=== PATIENT | female | born 1965 | race Caucasian/White ===

== ENCOUNTER → 2017-06-01 | Outpatient (CLI) | payer OTHER ==
[~2017-06-01] MED LIST: ALLEGRA 180MG180 MG PO; ALLEGRA180 MG PO; ARMOUR THYROID120 MG PO; CEPHALEXIN500 M1 PO; IMURAN 50MG TAB50 MG PO; MILLIPRED DP5 MG PO; PEPCID COMPLETE1 CTB PO; PREDNISONE10 MG PO; THYROID PO; TYLENOL 500MG500 MG PO; TYLENOL W/COD1 UDTAB PO; ZYRTEC 10MG PO; ZYRTEC 10MG10 MG PO
== END ==
LOC: MC.RAD 07:00
DX: Z12.31 Encounter for screening mammogram for malignant neoplasm of breast (principal)

== ENCOUNTER → 2017-07-05 | Outpatient (CLI) | payer OTHER | LOC: COL.RAD 07:19 | DX: M51.36 Other intervertebral disc degeneration, lumbar region (principal); M51.26 Other intervertebral disc displacement, lumbar region; M48.061 Spinal stenosis, lumbar region without neurogenic claudication ==

== ENCOUNTER → 2018-06-09 | Outpatient (CLI) | payer OTHER | LOC: MC.RAD 06-06 07:00 | DX: Z12.31 Encounter for screening mammogram for malignant neoplasm of breast (principal) ==

== ENCOUNTER 2018-08-15 13:40 | Day surgery (SDC) | payer OTHER ==
[2006-06-22 11:13] VITALS: BP 116/77
[2018-08-15] VITALS (7 sets, daily range): BP systolic 129–153; BP diastolic 87–104; PULSE 80–105; TEMP 97.2–97.5
[~2018-08-15] VITALS: Ht 157.5 cm; Wt 66.4 kg
[2018-08-15] MEDS ORDERED: ARMOUR THYROID90 MG PO (14:38)
[2018-08-15] MEDS ORDERED: PEPCID AC 10MG10 MG PO (14:43)
[2018-08-15] MEDS ORDERED: IMITREX 5MGNAS NS (14:44)
[2018-08-15] MEDS ORDERED: PREDNISONE20 MG PO (14:45)
[2018-08-15] MEDS ORDERED: XOLAIR150 MG SQ (14:49)
[2018-08-15] MEDS ORDERED: FOSAMAX 70MG TA70 MG PO (14:50)
[2018-08-15] MEDS ORDERED: MULTI VITAMINS1 TAB PO (14:50)
[2018-08-15] MEDS ORDERED: CALCIUM 600MG+D1 TAB PO (14:51)
--- NOTE | 2018-08-15 15:35 | NUR ---
Pt to [facility] via cart from [place]. Pt awake and alert. Pt ambulates to recliner with stand by assistance. Warm blankets given. Family in room. Sprite and jello given per pt request. Will continue to monitor. Call light within reach.
--- NOTE | 2018-08-15 15:50 | NUR ---
Pt continues to rest. Denies nausea or pain. Will continue to monitor.
--- NOTE | 2018-08-15 16:05 | NUR ---
Pt tolerating clear liquids. Denies needs. Call light within reach.
--- NOTE | 2018-08-15 16:20 | NUR ---
Pt continues to rest. Denies needs. Call light within reach.
--- NOTE | 2018-08-15 16:50 | NUR ---
Pt c/o pain 02/22 to abdomen. notified. Fentanyl 25mcg IV given per PRN orders. Will continue to monitor. Call light within reach.
--- NOTE | 2018-08-15 17:08 | NUR ---
Pt rating her abdominal pain 5/10. Fentanly 25mcg IV given per prn orders. Will continue to monitor. Call light within reach.
--- NOTE | 2018-08-15 17:20 | NUR ---
Pt rates pain 4/10. Pt up to restroom with stand by assistance. Pt voids large amount without difficulties. Pt back to room and requests to go home. Will provide discharge instructions.
--- NOTE | 2018-08-15 17:30 | NUR ---
Discharge instructions reviewed. Pt voices understanding. IV site discontinued with all parts intact. Pt up to dress. Call light within reach.
--- NOTE | 2018-08-15 17:43 | NUR ---
Pt escorted to private car via wheel chair. Pt accompanied home by her .
== END 2018-08-15 17:44 | disposition home or self-care (01) ==
LOC: SDCO 13:40
DX: K80.50 Calculus of bile duct without cholangitis or cholecystitis without obstruction (principal); K83.8 Other specified diseases of biliary tract; L50.8 Other urticaria; Z79.899 Other long term (current) drug therapy; E03.9 Hypothyroidism, unspecified; G43.909 Migraine, unspecified, not intractable, without status migrainosus; M51.36 Other intervertebral disc degeneration, lumbar region; Z83.71 Family history of colonic polyps; Z83.79 Family history of other diseases of the digestive system; D89.89 Other specified disorders involving the immune mechanism, not elsewhere classified; M81.0 Age-related osteoporosis without current pathological fracture; K58.9 Irritable bowel syndrome, unspecified
CPT/HCPCS: C1769; J2704; J3010; J7120; Q9967

== ENCOUNTER 2018-08-16 17:32 | Observation (INO) | payer OTHER ==
[~2018-08-16] VITALS: Ht 157.5 cm; Wt 67.3 kg
[~2018-08-16 17:32] MED LIST changes: +ARMOUR THYROID90 MG PO; +CALCIUM 600MG+D1 TAB PO; +FOSAMAX 70MG TA70 MG PO; +IMITREX 5MGNAS NS; +MULTI VITAMINS1 TAB PO; +PEPCID AC 10MG10 MG PO; +PREDNISONE20 MG PO; +XOLAIR150 MG SQ
[2018-08-16 18:13] LABS: BASO % 0.1 % (0.0-2.0); EOS % 0.1 % (0-4.0); GRAN # 9.1 (1.4-6.5); GRAN % 86.8 % (42.2-75.2); HEMATOCRIT 45.4 % (37.0-47.0); HEMOGLOBIN 15.1 g/dl (12.5-16.0); LYMPH # 0.6 (1.2-3.4); LYMPH % 5.4 % (20.0-51.0); MEAN CELL VOLUME 90 fl (80.0-100.0); MEAN CORPUSCULAR HEMOGLOBIN 30 pg (27.0-31.0); MEAN CORPUSCULAR HGB CONC 33 g/dl (33.0-37.0); MEAN PLATELET VOLUME 9.2 fl (7.4-10.4); MONO # 0.7 (0.1-0.6); MONO % 7.1 % (1.7-9.3); PLATELET COUNT 336 K/mm3 (130-400); RED BLOOD COUNT 5.03 M/mm3 (4.10-5.30); REDCELL DISTRIBUTION WIDTH-CV 13.1 % (11.5-14.5)
[2018-08-16 18:31] LABS: COLLECTION METHOD CLEAN CATCH
[2018-08-16 18:42] LABS: MUCOUS Present /lpf; PH 5 (5-8); URINE APPEARANCE Clear; URINE BACTERIA Rare /hpf; URINE BILIRUBIN Positive (NEGATIVE); URINE BLOOD 2+ (NEGATIVE); URINE COLOR Amber; URINE GLUCOSE Negative (NEGATIVE); URINE KETONE 2+ (NEGATIVE); URINE LEUKOCYTE ESTERASE 2+ (NEGATIVE); URINE NITRATE Negative (NEGATIVE); URINE PROTEIN(semi-quant) 1+ (NEGATIVE); URINE UROBILINOGEN >=4.0 mg/dL (NEGATIVE)
[2018-08-16 18:46] LABS: ALANINE AMINOTRANSFERASE 669 U/L (9-52); ALBUMIN 4.3 gm/dL (3.5-5.0); ALKALINE PHOSPHATASE 169 U/L (50-136); ANION GAP 6 mmol/L (7-16); BILIRUBIN,TOTAL 8.8 mg/dL (0.0-1.0); BLOOD UREA NITROGEN 9 mg/dL (7-17); CALCIUM 9.2 mg/dL (8.4-10.2); CARBON DIOXIDE 29 mmol/L (22-30); CHLORIDE 105 mmol/L (98-107); CREATININE, serum 0.68 mg/dL (0.52-1.25); GLUCOSE 108 mg/dL (74-106); LIPASE 589 U/L (23-300); POTASSIUM 4.4 mmol/L (3.4-5.0); SODIUM 140 mmol/L (137-145); TOTAL PROTEIN 7.4 gm/dL (6.4-8.2)
[2018-08-16 18:57] LABS: AST,SGOT 1051 U/L (15-37); C-REACTIVE PROTEIN < 0.5 mg/dL (0.0-0.9); TROPONIN-I < 0.012 ng/mL (0.000-0.034)
[2018-08-16 22:25] VITALS: BP 131/76; PULSE 92; TEMP 98.1
[2018-08-16 22:26] VITALS: BP 131/76; PULSE 92; TEMP 98.1
--- NOTE | 2018-08-16 22:50 | NUR ---
Patient up to room from ER by zion. Alert and oriented x 3. Oriented to room. Initial and shift assessment complete. Attempted to flush IV to right forarm, patient states pain and burning. IV restarted by night warehouse selector. Patient denies pain at this time. Denies further needs at this time.
[2018-08-17] VITALS (13 sets, daily range): BP systolic 109–128; BP diastolic 63–75; PULSE 80–102; TEMP 98.3–98.7
--- NOTE | 2018-08-17 | NUR ---
Contacted Esmer ALVARADO, patient complains of irritation at previous IV site. States that she is allergic to tape and having a reaction to tegaderm. Would like to know if she can have benadryl. Orders entered. Denies further needs at this time.
--- NOTE | 2018-08-17 05:08 | NUR ---
Patient has rested well through the night. Minimal needs. Has been up to restroom with stand by assist. IV fluids infusing via pump to right forarm. Denies pain at this time. Denies nausea. Denies further needs at this time. Will report off to day shift.
--- NOTE | 2018-08-17 07:36 | NUR ---
ANESTHESIA PAGED AND NOTIFIED OF ERCP CONSULT.
--- NOTE | 2018-08-17 07:52 | NUR ---
SIGNED CONSENT FOR ERCP WITH POSSIBLE STENT PLACEMENT WITH DR. FONTAINE ON PATIENT CHART.
--- NOTE | 2018-08-17 08:00 | NUR ---
PATIENT IS DROWSY THIS MORNING AND RESTING IN BED. PATIENT IS A&O. VSS. BOWEL SOUNDS HYPOACTIVE ALL QUADRANTS. PATIENT IS NPO FOR A PROCEDURE. PATIENT STATES THAT SHE FEELS NAUSEOUS, BUT DENIES ANY VOMITING THIS MORNING. PATIENT GIVEN PRN DOSE OF ZOFRAN IV. DIFFUSE HIVES OVER BODY NOTED. POSITIVE PEDAL PULSES EQUAL BILATERALLY. SCD'S TO BLE. IV FLUIDS INFUSING TO RIGHT FOREARM IV VIA PUMP. CALL LIGHT WITHIN REACH. PATIENT DENIES ANY OTHER NEEDS AT THIS TIME.
[2018-08-17 09:30] LABS: BASO % 0.1 % (0.0-2.0); EOS % 0.1 % (0-4.0); GRAN # 7.6 (1.4-6.5); GRAN % 83.1 % (42.2-75.2); HEMATOCRIT 41.9 % (37.0-47.0); HEMOGLOBIN 13.5 g/dl (12.5-16.0); LYMPH # 0.7 (1.2-3.4); LYMPH % 7.8 % (20.0-51.0); MEAN CELL VOLUME 93 fl (80.0-100.0); MEAN CORPUSCULAR HEMOGLOBIN 30 pg (27.0-31.0); MEAN CORPUSCULAR HGB CONC 32 g/dl (33.0-37.0); MEAN PLATELET VOLUME 9.2 fl (7.4-10.4); MONO # 0.8 (0.1-0.6); MONO % 8.4 % (1.7-9.3); PLATELET COUNT 319 K/mm3 (130-400); RED BLOOD COUNT 4.51 M/mm3 (4.10-5.30); REDCELL DISTRIBUTION WIDTH-CV 13.4 % (11.5-14.5)
[2018-08-17 09:40] LABS: ALBUMIN 3.8 gm/dL (3.5-5.0); BILIRUBIN,TOTAL 2.8 mg/dL (0.0-1.0); CALCIUM 8.7 mg/dL (8.4-10.2); CREATININE, serum 0.8 mg/dL (0.52-1.25); POTASSIUM 4.1 mmol/L (3.4-5.0); TOTAL PROTEIN 6.6 gm/dL (6.4-8.2)
--- NOTE | 2018-08-17 09:53 | NUR ---
Initial visit; Patient and thanked [facility] Inspector for looking in on her and letting her know of the availability of [facility].
--- NOTE | 2018-08-17 11:31 | NUR ---
PATIENT CALLED OUT REQUESTING NAUSEA MEDICATION. PATIENT GIVEN PRN DOSE OF IV ZOFRAN. REPORT GIVEN TO ENDO. PATIENT DENIES ANY OTHER NEEDS AT THIS TIME.
--- NOTE | 2018-08-17 11:56 | NUR ---
PREOP IV FAMOTIDINE GIVEN. LR TO GRAVITY FLOW TUBING INFUSING TO RIGHT FOREARM IV.
--- NOTE | 2018-08-17 12:50 | NUR ---
PATIENT TAKEN TO [facility] VIA CART BY RAIMUNDO SALAS. WILL WAIT FOR PATIENT TO RETURN TO ROOM 321-2 FROM THE PACU.
--- NOTE | 2018-08-17 14:00 | NUR ---
PATIENT ARRIVED BACK TO ROOM 321-2 VIA CART FROM THE PACU. POST-OP VSS. WILL CONTINUE TO MONITOR.
--- NOTE | 2018-08-17 15:13 | NUR ---
PATIENT CALLED OUT REQUESTING NAUSEA AND PAIN MEDICATION. PATIENT GIVEN PRN DOSE OF ZOFRAN IV & FENTANYL IV. WILL CONTINUE TO MONITOR.
--- NOTE | 2018-08-17 15:13 | NUR ---
SW met with patient to discuss discharge planning. Patient lives with her mayito in [facility]. Her PCP is Dr Blum and she obtains her medications from [facility]. Patient does not currently have any unmet discharge needs however elmer will continue to follow to assist.
--- NOTE | 2018-08-17 18:47 | NUR ---
PATIENT GIVEN PRN DOSE OF IV BENADRYL FOR ALLERGIES RELATED TO BEDSHEETS & POLLEN FROM MOON IN SHARED ROOM. PATIENT REQUESTED A PRIVATE ROOM DUE TO ALLERGIES. PHLEBOTOMIST ASSOCIATE NOTIFIED. REPORT GIVEN TO KIM INTERIANO.
[2018-08-18 04:00] VITALS: BP 124/87; PULSE 81; TEMP 99
--- NOTE | 2018-08-18 06:36 | NUR ---
Patient rested well overnight. Administered PRN zofran for nausea and benedryl for itching. No episodes of emesis overnight. Patient has otherwise denied pain or needs, call light within reach.
--- NOTE | 2018-08-18 08:00 | NUR ---
PATIENT IS SITTING UP IN BED THIS AM. PATIENT IS A&O. TACHYCARDIA NOTED, OTHERWISE VSS. BOWEL SOUNDS ACTIVE ALL FOUR QUADRANTS. PATIENT TOLERATING SOFT, BLAND DIET WITH SOME NAUSEA. PATIENT DENIES VOMITING. PATIENT GIVEN PRN DOSE OF ZOFRAN PRIOR TO BREAKFAST. DIFFUSE HIVES OVER BODY NOTED. PATIENT DENIES ITCHING. POSITIVE PEDAL PULSES EQUAL BILATERALLY. SCD'S TO BLE. IV FLUIDS INFUSING TO RIGHT FOREARM IV VIA PUMP. CALL LIGHT WITHIN REACH. PATIENT DENIES ANY NEEDS AT THIS TIME.
[2018-08-18 08:05] LABS: EOS % 0.1 % (0-4.0); GRAN # 5.3 (1.4-6.5); GRAN % 72.9 % (42.2-75.2); HEMATOCRIT 42.1 % (37.0-47.0); HEMOGLOBIN 13.6 g/dl (12.5-16.0); LYMPH # 1.2 (1.2-3.4); LYMPH % 16.5 % (20.0-51.0); MEAN CELL VOLUME 92 fl (80.0-100.0); MEAN CORPUSCULAR HEMOGLOBIN 30 pg (27.0-31.0); MEAN CORPUSCULAR HGB CONC 32 g/dl (33.0-37.0); MEAN PLATELET VOLUME 9.1 fl (7.4-10.4); MONO # 0.7 (0.1-0.6); MONO % 10.2 % (1.7-9.3); PLATELET COUNT 313 K/mm3 (130-400); RED BLOOD COUNT 4.56 M/mm3 (4.10-5.30); REDCELL DISTRIBUTION WIDTH-CV 13.3 % (11.5-14.5)
[2018-08-18 08:14] LABS: CALCIUM 8.6 mg/dL (8.4-10.2); CREATININE, serum 0.84 mg/dL (0.52-1.25); POTASSIUM 3.8 mmol/L (3.4-5.0)
[2018-08-18 11:18] LABS: ALBUMIN 3.8 gm/dL (3.5-5.0); BILIRUBIN UNCONJUGATED 1.2 mg/dL (0.0-1.1); BILIRUBIN,DIRECT 0.4 mg/dL (0.0-0.4); BILIRUBIN,TOTAL 1.6 mg/dL (0.0-1.0); TOTAL PROTEIN 6.7 gm/dL (6.4-8.2)
[2018-08-18] MEDS ORDERED: ZOFRAN ODT4 MG PO (12:02)
[2018-08-18 12:18] VITALS: BP 125/84; PULSE 82; TEMP 98.7
--- NOTE | 2018-08-18 16:08 | NUR ---
PATIENT CALLED OUT STATING THAT SHE FELT NAUSEATED. PATIENT GIVEN PRN DOSE OF IV ZOFRAN. NO OTHER NEEDS AT THIS TIME.
[2018-08-18 16:48] VITALS: BP 121/83; PULSE 86; TEMP 98.5
--- NOTE | 2018-08-18 17:30 | NUR ---
PATIENT'S RIGHT FOREARM INT DC'D PER PENDING DISCHARGE. PATIENT TOLERATED WELL. DISCHARGE INSTRUCTIONS REVIEWED WITH PATIENT. ALL QUESTIONS ANSWERED. PATIENT PERSONAL BELONGINGS GATHERED. PATIENT TAKEN TO PERSONAL VEHICLE VIA WHEELCHAIR BY SURGICAL STAFF. PATIENT DISCHARGED.
== END 2018-08-18 17:30 | disposition home or self-care (01) ==
LOC: COL.ER 17:32 → SURG 19:48
PROVIDERS: Emergency Medicine; Nurse Practitioner Family; Physician Assistant
DX: K83.8 Other specified diseases of biliary tract (principal); R17 Unspecified jaundice; R94.5 Abnormal results of liver function studies; K91.89 Other postprocedural complications and disorders of digestive system; N39.0 Urinary tract infection, site not specified; E03.9 Hypothyroidism, unspecified; G43.909 Migraine, unspecified, not intractable, without status migrainosus; L50.8 Other urticaria; M85.80 Other specified disorders of bone density and structure, unspecified site; Z90.49 Acquired absence of other specified parts of digestive tract; Z79.52 Long term (current) use of systemic steroids; Z88.0 Allergy status to penicillin; Z88.2 Allergy status to sulfonamides; Z91.040 Latex allergy status; Z91.010 Allergy to peanuts; Z91.018 Allergy to other foods; Z88.6 Allergy status to analgesic agent; Z88.5 Allergy status to narcotic agent; Z91.013 Allergy to seafood; Z87.891 Personal history of nicotine dependence
CPT/HCPCS: 99223-AI; 99239; C1769; C2625; G0378; J0696; J1200; J2060; J2405; J2704; J3010; J7030; J7120; Q9967

== ENCOUNTER 2018-09-23 12:36 | Day surgery (SDC) | payer OTHER ==
[2006-06-22 11:13] VITALS: BP 116/77
[~2018-09-23] VITALS: Ht 157.5 cm; Wt 64.0 kg
[~2018-09-23 12:36] MED LIST changes: +ZOFRAN ODT4 MG PO
[2018-09-23 13:15] VITALS: BP 136/95; PULSE 98; TEMP 98.3
--- NOTE | 2018-09-23 13:26 | NUR ---
TO RM AT 1245- CALL LIGHT IN REACH FAMILY AT BEDSIDE
--- NOTE | 2018-09-23 13:40 | NUR ---
PER REQUEST RECEIVED BENADRYL 25MG IV FOR [place] ORDER FROM EVON PATEL RED RAISED AREAS ON RIGHT HIP AND C/O ITCHING.
[2018-09-23 14:30] VITALS: BP 130/81; PULSE 95; TEMP 97.6
--- NOTE | 2018-09-23 14:30 | NUR ---
TO [facility] [facility] VIA CART FROM ENDO ROOM, PT WALKED TO CHAIR, FAMILY IN ROOM NOW. PT IS AWAKE AND ALERT, NO C/O PAIN. TAKES SPRITE. INTO TALK WITH PT AND FAMILY
[2018-09-23 14:45] VITALS: BP 129/85; PULSE 89
--- NOTE | 2018-09-23 14:45 | NUR ---
PT HAS RED RAISED AREA TO OLD IV SITE ON RIGHT ANTECUBITAL AREA, AREA IS TENDER, SLIGHTLY BRUISED FROM IV STICK, WARM COMPRESS APPLIED, WILL MONITOR
[2018-09-23 15:00] VITALS: BP 110/84; PULSE 88
[2018-09-23 15:15] VITALS: BP 118/80; PULSE 80
--- NOTE | 2018-09-23 15:15 | NUR ---
REVIEWED DISCHARGE INST. WITH PT AND ON ACTIVITY AND DIET WITH VERBAL UNDERSTANDING. AREA TO PT RIGHT ARM SLIGHT BETTER, INSTRUCTED ON WARM/COLD PACK NEEDED AND IF DOES NOT CON'T TO GET BETTER TO LET DR KNOW, IV TO RIGHT WRIST D'CD INTACT WITH NO SWELLING OR REDNESS NOTED. PT UP IN ROOM DRESSED
== END 2018-09-23 15:43 | disposition home or self-care (01) ==
LOC: SDCO 12:36
DX: K83.8 Other specified diseases of biliary tract (principal); K59.00 Constipation, unspecified; E03.9 Hypothyroidism, unspecified; K58.1 Irritable bowel syndrome with constipation; K92.1 Melena; K83.1 Obstruction of bile duct; G43.909 Migraine, unspecified, not intractable, without status migrainosus; Z91.040 Latex allergy status; Z79.51 Long term (current) use of inhaled steroids; Z87.891 Personal history of nicotine dependence; Z88.5 Allergy status to narcotic agent; Z88.2 Allergy status to sulfonamides; Z83.71 Family history of colonic polyps; Z83.79 Family history of other diseases of the digestive system
CPT/HCPCS: OP; C1769; J1200; J2704; J3010; J7030; Q9967

== ENCOUNTER → 2019-05-22 | Outpatient (CLI) | payer OTHER | LOC: COL.RAD 05-18 09:00 | DX: M47.26 Other spondylosis with radiculopathy, lumbar region (principal) ==

== ENCOUNTER → 2019-06-30 | Outpatient (CLI) | payer OTHER | LOC: MC.RAD 08:08 | DX: Z12.31 Encounter for screening mammogram for malignant neoplasm of breast (principal) ==

== ENCOUNTER → 2020-06-13 | Outpatient (CLI) | payer OTHER | LOC: MC.RAD 07:28 | DX: Z12.31 Encounter for screening mammogram for malignant neoplasm of breast (principal) ==

== ENCOUNTER → 2021-06-27 | Outpatient (CLI) | payer OTHER | LOC: MC.RAD 08:12 | DX: Z12.31 Encounter for screening mammogram for malignant neoplasm of breast (principal) ==

== ENCOUNTER → 2024-06-14 | Outpatient (CLI) | payer BC ==
[2006-06-24 10:10] VITALS: BP 116/77; PULSE 80; TEMP 98.4
== END ==
LOC: MC.RAD 11:34
DX: Z12.31 Encounter for screening mammogram for malignant neoplasm of breast (principal)